=== PATIENT | male | born 1990 | race Caucasian/White ===

== ENCOUNTER 2017-06-09 05:16 | Emergency (ER) | payer SELFPAY | END 2017-06-09 05:50 | disposition left against medical advice (07) | LOC: FTE 05:16 | DX: Z53.21 Procedure and treatment not carried out due to patient leaving prior to being seen by health care provider (principal) ==

== ENCOUNTER 2017-06-09 07:43 | Emergency (ER) | payer OTHER ==
[2017-06-09] MEDS: IBUPROFEN 600 MG TAB PO (08:13)
== END 2017-06-09 09:10 | disposition home or self-care (01) ==
LOC: FTE 07:43
DX: S62.663A Nondisplaced fracture of distal phalanx of left middle finger, initial encounter for closed fracture (principal); F17.210 Nicotine dependence, cigarettes, uncomplicated; X58.XXXA Exposure to other specified factors, initial encounter; Y92.69 Other specified industrial and construction area as the place of occurrence of the external cause
CPT/HCPCS: 29125; 73130-LT; 99283-25